=== PATIENT | female | born 1980 | race Caucasian/White ===

== ENCOUNTER 2016-06-19 07:26 | Inpatient (IN) | payer OTHER ==
[2016-06-19] MEDS ORDERED: Penicillin G Potassium IV* 5,000,000 UNITS in NS 0.9% 100 ML* 100 ML IVPB ONE (08:30)
[2016-06-19 08:42] LABS: Hematocrit 42 % (35-47); Hemoglobin 13.8 g/dl (12.0-16.0); Mean Corpuscular HGB Conc 33 g/dl (31-36); Mean Corpuscular Hemoglobin 29 pg (27-31); Mean Corpuscular Volume 88 fL (80-97); Mean Platelet Volume 9 um3 (7.4-10.4); Red Blood Count 4.75 10^6/ul (4.0-5.4); Red Cell Distribution Width 16 % (10.5-15)
[2016-06-19 08:44] LABS: Add Diff/Slide Review? Slide Review Added; Comments Flag Yes
[2016-06-19] MEDS ORDERED: Oxytocin in LR* 20 UNITS/1,000 ML BAG IVPB ONE (09:36)
[2016-06-19] MEDS ORDERED: Oxytocin in LR* 20 UNITS/1,000 ML BAG IVPB SCH ×2 (10:00→19:00)
[2016-06-19] MEDS: Penicillin G Potassium IV* 2,500,000 UNITS in NS 0.9% 100 ML* 100 ML IVPB SCH ×2 (13:02→17:30)
[2016-06-19] MEDS ORDERED: OBEPIDURAL* 250 ML ONE (17:06)
[2016-06-19] MEDS ORDERED: fentaNYL* 50 MCG/ML 2 ML VIAL (100 MCG VIAL) ONE (17:07)
[2016-06-19] MEDS ORDERED: Phenylephrine IV* 40 MCG/ML 10 ML SYRINGE IV PUSH PRN ×2 (17:44)
[2016-06-19] MEDS ORDERED: Sodium Citrate/Citric Acid* 15 ML UDC PO PRN (17:44)
[2016-06-19] MEDS ORDERED: Famotidine TAB* 20 MG PO PRN (17:44)
[2016-06-19] MEDS ORDERED: OBEPIDURAL* 250 ML EPIDURAL SCH (18:00)
[2016-06-19] MEDS ORDERED: Glycerin ADULT SUPP PR PRN (18:23)
[2016-06-19] MEDS ORDERED: Acetaminophen TAB* 325 MG PO PRN (18:23)
[2016-06-19] MEDS ORDERED: RHO D Immune Globulin (HUMAN)* 300 MCG = 1,500 I.U. INJ IM ONE (18:23)
[2016-06-19] MEDS ORDERED: Dibucaine 1% 28.35 GM TUBE PR PRN (18:23)
[2016-06-19] MEDS ORDERED: Witch Hazel PAD* JAR TOPICAL PRN (18:23)
[2016-06-19] MEDS ORDERED: Simethicone TAB* 80 MG TAB.CHEW PO SCH (21:00)
[2016-06-20 05:14] LABS: Hematocrit 35 % (35-47); Hemoglobin 11.5 g/dl (12.0-16.0); Mean Corpuscular HGB Conc 33 g/dl (31-36); Mean Corpuscular Hemoglobin 29 pg (27-31); Mean Corpuscular Volume 88 fL (80-97); Mean Platelet Volume 9 um3 (7.4-10.4); Red Blood Count 3.93 10^6/ul (4.0-5.4); Red Cell Distribution Width 15 % (10.5-15); White Blood Count 18.5 10^3/ul (3.5-10.8)
[2016-06-20 05:18] LABS: Add Diff/Slide Review? Slide Review Added
[2016-06-20] MEDS: Docusate CAP* 100 MG PO SCH ×4 (08:47→22:31)
[2016-06-20] MEDS ORDERED: Ferrous Gluconate TAB* 324 MG TAB PO SCH (09:00)
[2016-06-20] MEDS: Ibuprofen TAB* 600 MG PO PRN ×3 (11:01→22:31)
[2016-06-20 19:52] VITALS: BP 133/80
[2016-06-21] MEDS: Ibuprofen TAB* 600 MG PO PRN (09:00)
[2016-06-21] MEDS: Docusate CAP* 100 MG PO SCH (09:02)
== END 2016-06-21 18:50 | disposition home or self-care (01) | DRG 560 ==
LOC: MCHOBOUT 07:26 → MCHOB 08:17
PROVIDERS: ADMIT Obstetrics & Gynecology; ATTEND Obstetrics & Gynecology
PROC: 3E033VJ Introduction of Other Hormone into Peripheral Vein, Percutaneous Approach (ICD-10-PCS; principal; 2016-06-19)
PROC: 10E0XZZ Delivery of Products of Conception, External Approach (ICD-10-PCS; 2016-06-19)
PROC: 10907ZC Drainage of Amniotic Fluid, Therapeutic from Products of Conception, Via Natural or Artificial Opening (ICD-10-PCS; 2016-06-19)
PROC: 4A1HXCZ Monitoring of Products of Conception, Cardiac Rate, External Approach (ICD-10-PCS; 2016-06-19)
PROC: 4A1H7CZ Monitoring of Products of Conception, Cardiac Rate, Via Natural or Artificial Opening (ICD-10-PCS; 2016-06-19)
PROC: 10H07YZ Insertion of Other Device into Products of Conception, Via Natural or Artificial Opening (ICD-10-PCS; 2016-06-19)
DX: O99.824 Streptococcus B carrier state complicating childbirth (principal); Z68.42 Body mass index [BMI] 45.0-49.9, adult; O36.5930 Maternal care for other known or suspected poor fetal growth, third trimester, not applicable or unspecified; Z3A.37 37 weeks gestation of pregnancy; Z37.0 Single live birth; O09.523 Supervision of elderly multigravida, third trimester; O99.214 Obesity complicating childbirth; E66.9 Obesity, unspecified; O71.89 Other specified obstetric trauma; O99.334 Smoking (tobacco) complicating childbirth; F17.210 Nicotine dependence, cigarettes, uncomplicated; O35.9XX0 Maternal care for (suspected) fetal abnormality and damage, unspecified, not applicable or unspecified; O69.3XX0 Labor and delivery complicated by short cord, not applicable or unspecified
CPT/HCPCS: 36415; 85025; 85461; 86850; 86900; 86901; 88307; A9270-GY; J2540; J2790; J3010

== ENCOUNTER 2018-04-29 07:09 | Emergency (ER) | payer OTHER ==
[2018-04-29] MEDS ORDERED: Albuterol/Ipratropium NEB.SOL* Albuterol 2.5 MG/Ipratropium 0.5 MG 3 ML INH ONE (08:05)
--- NOTE | 2018-04-29 08:11 | ED ---
Influenza-Like Illness - HPI Summary HPI Summary: Patient presents with flulike symptoms 1 week. Reports this started as body aches with nasal congestion and a dry cough. These symptoms have been persistent over the course of the week and she feels like congestion is removed from her head into her chest. She has intermittent mucus production. Tried her child's nebulizer treatment at home which she reports helped last night. She denies history of asthma or COPD but admits to smoking half pack per day. Denies frequent bronchitis or history of pneumonia. Additionally, has tried humidification with 6 an [id number] cough and cold medications. She is concerned about bronchitis pneumonia today. Denies nausea vomiting diarrhea. - History of Current Complaint Chief Complaint: EDUpperRespComplaint Time Seen by Provider: 04/29/18 07:38 Hx Obtained From: Patient - Allergy/Home Medications Allergies/Adverse Reactions: Allergies Allergy/AdvReac Type Severity Reaction Status Date / Time No Known Allergies Allergy Verified 04/29/18 07:18 PMH/Surg Hx/FS Hx/Imm Hx Previously Healthy: Yes Endocrine/Hematology History: Denies: Hx Diabetes, Autoimmune Disease Respiratory History: Denies: Hx Asthma, Hx Chronic Obstructive Pulmonary Disease (COPD) - smokes - Surgical History Surgery Procedure, Year, and Place: age 4 - left lymph node in groin drained - Immunization History Date of Influenza Vaccine: NO Infectious Disease History: No Infectious Disease History: Denies: History Other Infectious Disease, Traveled Outside the [place] in Last 30 Days - Family History Known Family History: Positive: Cardiac Disease - Father, Other - Mother MS - Social History Occupation: Employed Full-time - [employer] Lives: With Family - single mom of 4 kids Alcohol Use: Rare Hx Substance Use: No Substance Use Type: Reports: None Hx Tobacco Use: Yes Smoking Status (MU): Current Every Day Smoker Type: Cigarettes Amount Used/How Often: 1/2 PPD Length of Time of Smoking/Using Tobacco: 19 YEARS Have You Smoked in the Last Year: Yes Review of Systems Positive: Fever, Chills, Fatigue Positive: Nasal Discharge - congestion Positive: Cough. Negative: Shortness Of Breath Gastrointestinal: Negative Positive: no symptoms reported Positive: Myalgia Skin: Negative Psychological: Normal All Other Systems Reviewed And Are Negative: Yes Physical Exam Triage Information Reviewed: Yes Vital Signs On Initial Exam: Initial Vitals Temp Pulse Resp BP Pulse Ox 98.7 F 92 20 139/84 96 04/29/18 07:14 04/29/18 07:14 04/29/18 07:14 04/29/18 07:14 04/29/18 07:14 Vital Signs Reviewed: Yes Appearance: Positive: No Pain Distress, Ill-Appearing - apepears fatigued, Obese Skin: Positive: Warm, Skin Color Reflects Adequate Perfusion, Dry - no rash Head/Face: Positive: Normal Head/Face Inspection Eyes: Positive: Normal, EOMI, Conjunctiva Clear ENT: Positive: Pharyngeal erythema - mild cobblestoning, no edema, Nasal congestion - Lt > Rt, TMs normal, Uvula midline. Negative: Nasal drainage, Tonsillar swelling, Tonsillar exudate Neck: Positive: Supple, Nontender, No Lymphadenopathy Respiratory/Lung Sounds: Positive: Wheezes - throughout chest - heard best over posterior back, Fatigue - mild. Negative: Decreased Breath Sounds, Rales, Rhonchi, Unable to speak in full sentences Cardiovascular: Positive: Normal, RRR, S1, S2. Negative: Murmur, Rub, Leg Edema Left, Leg Edema Right Musculoskeletal: Positive: Normal, Strength/ROM Intact Neurological: Positive: Normal, Sensory/Motor Intact, Alert, Oriented to Person Place, Time, CN Intact II-III Psychiatric: Positive: Normal Diagnostics - Vital Signs Vital Signs Temp Pulse Resp BP Pulse Ox 04/29/18 07:14 98.7 F 92 20 139/84 96 - Laboratory Lab Statement: Any lab studies that have been ordered have been reviewed, and results considered in the medical decision making process. Re-Evaluation - Re-Evaluation First Eval Change: Improved Flu Symptom Course/Dx - Course Course Of Treatment: CXR: Lt lingular PNA. Neg influenza - Diagnoses Provider Diagnoses: Pneumonia involving left lung, Smoking Discharge - Sign-Out/Discharge Documenting (check all that apply): Patient Departure - Discharge Plan Condition: Stable Disposition: HOME Prescriptions: Albuterol/Ipratropium NEB.CHARLES* [Duoneb (Albuterol 2.5 MG/Ipratropium 0.5 MG)] 1 neb INH Q6H PRN #30 neb.[email or web address] PRN Reason: Cough Levofloxacin TAB* [Levaquin TAB*] 750 mg PO DAILY #5 tab Patient Education Materials: How to Stop Smoking (ED), Bacterial Pneumonia (ED) Forms: *Work Release Referrals: Misael Aguilar MD [Primary Care Provider] - Additional Instructions: Complete antibiotics as directed. Use duoneb in nebulizer machine as directed Followup with PCP Friday. If worse in the meantime, return to ED For relief, you may try the following: Nasal wash (netti pot or saline spray) & salt water throat gargles 2 x day Drink you body weight in ounces of water every day Sleep 8+ hours per night Avoid Dairy and sugar Hot herbal/decaf tea with lemon & honey Chicken broth (preferably organic, free range chicken) Humidifier in house, but especially near bed at night Keep home temperature at 68F or less to reduce dryness Use cough drops/throat lozenges Try a facial steam with or without eucalyptus essential oil or Castillo's Vapor rub for congestion Avoid smoke, candles, perfumes, colognes, scented soaps/detergents , air fresheners and cleaning chemicals as these can cause airway irritation and trigger coughing Start Vitamin D3 5000iu and Vitamin C 1000mg every day x winter months Start probiotics in between antibiotics (ie. Yogurt and/or capsules of L. acidophilus, L. bifidus, L. casei, etc) - Billing Disposition and Condition Condition: STABLE Disposition: Home
[2018-04-29 09:10] VITALS: BP 134/78
== END 2018-04-29 09:10 | disposition home or self-care (01) ==
LOC: ED 07:09
DX: J18.9 Pneumonia, unspecified organism (principal); F17.210 Nicotine dependence, cigarettes, uncomplicated
CPT/HCPCS: 71046; 99282; A9270-GY

== ENCOUNTER 2018-08-30 19:11 | Emergency (ER) | payer OTHER ==
--- NOTE | 2018-08-30 20:12 | ED ---
Laceration/Wound HPI - HPI Summary HPI Summary: 38-year-old female presents with left hand laceration. States she was making dinner and cutting her hand with knife. She denies any foreign body in the wound. She is left-handed. She works as chemical manager. tetanus up-to-date. Has no medical conditions. Is unable to flex left finger. no numbness or tingling. has superficial laceration at left ring finger and deep at left pinky finger - History of Current Complaint Stated Complaint: HAND LAC PER PT Time Seen by Provider: 08/30/18 20:00 Hx Last Menstrual Period: end of August 2015 Pain Intensity: 2 - Allergy/Home Medications Allergies/Adverse Reactions: Allergies Allergy/AdvReac Type Severity Reaction Status Date / Time No Known Allergies Allergy Verified 04/29/18 07:18 Home Medications: Home Medications NK [No Home Medications Reported] 08/30/18 [History Confirmed 08/30/18] PMH/Surg Hx/FS Hx/Imm Hx Endocrine/Hematology History: Denies: Hx Diabetes Respiratory History: Denies: Hx Asthma, Hx Chronic Obstructive Pulmonary Disease (COPD) - smokes - Surgical History Surgery Procedure, Year, and Place: age 4 - left lymph node in groin drained - Immunization History Date of Influenza Vaccine: NO Infectious Disease History: No Infectious Disease History: Denies: History Other Infectious Disease, Traveled Outside the [place] in Last 30 Days - Family History Known Family History: Positive: Cardiac Disease - Father, Other - Mother MS - Social History Alcohol Use: None Hx Substance Use: No Substance Use Type: Reports: None Hx Tobacco Use: Yes Smoking Status (MU): Light Every Day Tobacco Smoker Type: Cigarettes Amount Used/How Often: 1/2 PPD Length of Time of Smoking/Using Tobacco: 19 YEARS Have You Smoked in the Last Year: Yes Review of Systems Negative: Fever Negative: Chest Pain Negative: Shortness Of Breath Positive: Other - laceration left finger All Other Systems Reviewed And Are Negative: Yes Physical Exam Triage Information Reviewed: Yes Vital Signs On Initial Exam: Initial Vitals Temp Pulse Resp BP Pulse Ox 99.3 F 80 20 132/90 99 08/30/18 19:18 08/30/18 19:18 08/30/18 19:18 08/30/18 19:18 08/30/18 19:18 Vital Signs Reviewed: Yes Appearance: Positive: Well-Appearing Skin: Positive: Warm, Dry, Other - 1 1/2cm by 1/2cm laceration to palmar aspect of mcp of left pinky, 1cm superficial left ring finger Head/Face: Positive: Normal Head/Face Inspection Eyes: Positive: Normal, Conjunctiva Clear ENT: Positive: Pharynx normal Respiratory/Lung Sounds: Positive: Clear to Auscultation, Breath Sounds Present Cardiovascular: Positive: Normal, RRR Musculoskeletal: Positive: Limited @ - unable to active flex left pinky at MCP, PIP, or DIP,, Other - capillary refill< 2secs Neurological: Positive: Normal Psychiatric: Positive: Normal Procedures - Laceration/Wound Repair 1 Location: Other - left pinky finger Description: Linear Anesthesia: Local, 1.0% Length, Depth and Shape: 1 1/2cm by 1/2cm Irrigated w/ Saline (ccs): 500 Closure: Single Layer Number of Sutures: 2 Sterile Dressing Applied?: Yes - telfa and foam splint and coband 2 Location: Other - left ring finger Description: Linear Length, Depth and Shape: 1cm superficial Irrigated w/ Saline (ccs): 100 Closure: Skin Adhesive Diagnostics - Vital Signs Vital Signs Temp Pulse Resp BP Pulse Ox 08/30/18 19:18 99.3 F 80 20 132/90 99 - Laboratory Lab Statement: Any lab studies that have been ordered have been reviewed, and results considered in the medical decision making process. Laceration Repair Course/Dx - Course Course Of Treatment: 38-year-old female presents with left hand laceration. States she was making dinner and cutting her hand with knife. She denies any foreign body in the wound. She is left-handed. She works as chemical manager. tetanus up-to-date. Has no medical conditions. Is unable to flex left finger. no numbness or tingling. on exam has 1 1/2cm by 1/2cm laceration to MCP of palmar aspect left pinky. unable to actively flex left pinky. cleaned area and placed 2 sutures. placed glue on left ring finger superficial laceration full ROM of this finger. placed in foam finger splint and ronald taped to next finger. gave referral to ortho. spoke with dr irizarry who says to have follow up with ortho on Friday. patient understand and agrees with plan. - Differential Dx Differental Diagnoses: Abrasion, Avulsion, Laceration - Clinical Impression Provider Diagnoses: Tendon laceration, Laceration of left hand Discharge - Sign-Out/Discharge Documenting (check all that apply): Patient Departure Patient Received Moderate/Deep Sedation with Procedure: No - Discharge Plan Condition: Good Disposition: HOME Patient Education Materials: Care For Your Stitches (ED) Referrals: Misael Aguilar MD [Primary Care Provider] - Ricky Irizarry MD [Medical Doctor] - Additional Instructions: call ortho office tomorrow morning for appointment Friday with dr irizarry Keep splint on area and keep dry glue will fall off on own Return to ED if develop any new or worsening symptoms - Billing Disposition and Condition Condition: GOOD Disposition: Home
[2018-08-30] MEDS ORDERED: Lidocaine 1%* 5 ML VIAL INJ ONE (20:13)
[2018-08-30 21:21] VITALS: BP 140/104
== END 2018-08-30 21:20 | disposition home or self-care (01) ==
LOC: ED 19:11
DX: S66.922A Laceration of unspecified muscle, fascia and tendon at wrist and hand level, left hand, initial encounter (principal); S61.215A Laceration without foreign body of left ring finger without damage to nail, initial encounter; S61.217A Laceration without foreign body of left little finger without damage to nail, initial encounter; W26.0XXA Contact with knife, initial encounter; Y92.9 Unspecified place or not applicable; F17.210 Nicotine dependence, cigarettes, uncomplicated
CPT/HCPCS: 12002; 99282

== ENCOUNTER → 2018-09-03 14:48 | Day surgery (SDC) | payer OTHER ==
[~2018-09-03 14:48] MED LIST: Acetaminophen IV 1GM/100ML * 1,000 MG/100 ML VIAL IVPB ONE; Acetaminophen IV 1GM/100ML * 100 ML ONE; Buffered Lidocaine 1% SYRIN* 1 ML/SYRINGE INTRADERM ONE; Bupivacaine 0.25% SDV PF* 10 ML VIAL INJ ONE; Dexamethasone IV* 4 MG/ML 1 ML (4 MG) IV SLOW PU ONE; Dexamethasone IV* 4 MG/ML 1 ML (4 MG) ONE; DiMENhydriNATE IV* 50 MG/ML VIAL IV PUSH PRN; Famotidine TAB* 20 MG ONE; Famotidine TAB* 20 MG PO ONE; HYDROmorphone INJ1* 1 MG/ML SYRINGE IV PRN; HYDROmorphone INJ1* 1 MG/ML SYRINGE ONE; Ketorolac INJ* 30 MG/ML 1 ML VIAL IV PRN; Ketorolac INJ* 30 MG/ML 1 ML VIAL ONE; Lactated Ringers 1000 ML Bag* 1,000 ML IV SCH; Lidocaine 2% PF * 5 ML VIAL ONE; Midazolam* 1 MG/ML 5 ML VIAL (5 MG) ONE; Naloxone* 0.4 MG/ML 1 ML VIAL IV PRN; Ondansetron INJ* 2 MG/ML VIAL ONE; PROCHLORPERAZINE INJ 5 MG/ML 2 ML VIAL IV PRN; Propofol* 10 MG/ML 20 ML BTL ONE; Rocuronium* 10 MG/ML VIAL ONE; Succinylcholine* 20 MG/ML 10 ML VIAL ONE; ceFAZolin 2 GM PREMIX in ORs 2 GM/50 ML BAG IVPB ONE; fentaNYL* 50 MCG/ML 2 ML VIAL (100 MCG VIAL) IV PRN; fentaNYL* 50 MCG/ML 2 ML VIAL (100 MCG VIAL) ONE; oxyCODONE TAB* 5 MG TAB ONE; oxyCODONE TAB* 5 MG TAB PO PRN
[2018-09-03 18:48] VITALS: BP 119/69
--- NOTE | 2018-09-04 02:53 | OP ---
DATE OF OPERATION: 09/03/18 - [facility] DATE OF : 78 SURGEON: Ricky Beckwith MD. [employer] ACT OFFICER: LUANA Joyce, followed by LUANA Marquez. ANESTHESIOLOGIST: Dr. Farncis. ANESTHESIA: General. PRE-OP DIAGNOSIS: Left zone 2 flexor tendon lacerations of the FDS and FDP tendons. POST-OP DIAGNOSIS: Left zone 2 flexor tendon lacerations of the FDS and FDP tendons. OPERATIVE PROCEDURE: 1. Repair of left small finger FDP zone 2 flexor tendon laceration. 2. Repair of single slip of left zone 2 FDS flexor tendon laceration. 3. Excision of single slip of left small finger FDS tendon. INDICATIONS: Kerline had the aforementioned injury; it was a knife injury. The finger was sensate, but the flexor tendons were both cut. The laceration was near the MP flexion crease. I talked to her about the difficulty with these injuries in achieving a good outcome. She understands the need for flexor tendon protocol postoperatively and the risk of rupture of the flexor tendon as well as tendon adhesions. She would like to proceed with surgery. ESTIMATED BLOOD LOSS: 10 mL. COMPLICATIONS: None. FINDINGS: See above and below. DESCRIPTION OF PROCEDURE: Kerline was seen in the preoperative holding area. The correct site, side, and procedure were identified. We came back to the operating room. Anesthesia was induced. The arm was prepped and draped in the usual fashion and a time-out was performed. The arm was exsanguinated with the Esmarch and then the hand was placed in the lead hand. I then made a Holli incision, incorporating her traumatic incision. This was extended from the distal palm up towards the DIP joint flexion crease. The lacerated flexor tendons were encountered right near the PIP joint and just a little bit distal to that. The FDP was lacerated just a little bit more distal than the FDS. The insertion of the FDS tendons was intact. The FDS tendon was retrieved with a small incision through the cruciate brandy. The FDP tendon was a little bit more proximal and so that was retrieved just proximal to the A1 brandy. I placed a couple of small 4-0 Prolene sutures in the end of the FDP tendon and I used a pediatric feeding tube to shuttle the FDP tendon in through the flexor tendon sheath and between Camper chiasm. Prior to that, I had repaired both limbs of the FDS, each with a single 4-0 Prolene 2-strand cruciate type repair. Once I had the FDP pulled through the tendon sheath, I went ahead and preserved the A4 brandy. I opened up the tendon sheath between the A2 and the A4 brandy. I then placed a cruciate type 5-0 Prolene stitch on the radial aspect and on the ulnar aspect of the tendon, keeping it in good approximation. One of the stitches was preserved as future epitendinous suture. I then placed a 6-strand core 3-0 Ethibond suture. This was tied off and achieved excellent tendon apposition without any gapping. I took the finger through a flexion and extension arc and there was no gapping. I, therefore, ran in a simple running fashion my 5-0 Prolene suture circumferentially around the tendon, bringing the edges in excellent apposition. With the epitendinous suture completed and the 3-0 Ethibond not completely buried, I went ahead and looked at my complete tendon repair. She had good flexion through the area, but then I thought she was hanging up just a little bit at the distal edge of the A2 brandy. I thought I could help with this by excising a single slip of the FDS. The radial slip was the more bulky slip and that was holding it up more. I therefore released this distally at its insertion and then I released Arash grigsby and then pulled the radial slip up proximally up past the A1 brandy. This was then bevelled off with the Leander blade with the finger in full extension. I went ahead and augmented my other FDS repair with another [id number] 5-0 Prolene suture. At this point, every-thing was looking very nice. There was good flexion and extension. There was no catching. The digital nerves had been preserved throughout the case. We irrigated out the wound. Skin was closed with 4- 0 nylon suture. A digital block was performed with 0.25% Marcaine. Wounds were dressed and a dorsal blocking splint was applied with the wrist in neutral flexion and the MP joint in maximum flexion. Tourniquet was deflated during splint placement and the finger pinked up immediately. She was taken to the recovery room in stable condition. [id number]/[facility] #: [id number] [facility] HOSPITALAdeel
== END | disposition home or self-care (01) ==
LOC: OR 14:48
PROVIDERS: ATTEND Orthopaedic Surgery Hand Surgery
DX: S66.127A Laceration of flexor muscle, fascia and tendon of left little finger at wrist and hand level, initial encounter (principal); W26.0XXA Contact with knife, initial encounter; Y92.000 Kitchen of unspecified non-institutional (private) residence as the place of occurrence of the external cause; Z72.0 Tobacco use; F41.8 Other specified anxiety disorders
CPT/HCPCS: 81025; 88304; A9270-GY; J0330; J0690; J1100; J1170; J1885; J2250; J2405; J2704; J3010; J3490